=== PATIENT | male | born 1945 | race Caucasian/White ===

== ENCOUNTER 2016-06-02 14:06 | Emergency (ER) | payer BC ==
[~2016-06-02] VITALS: Ht 180.3 cm; Wt 107.0 kg
[2016-06-02 14:13] VITALS: BP 140/96; PULSE 138; RESP 16; TEMP 97.7; O2SAT 98
[2016-06-02] MEDS ORDERED: TAMS5CAP PO (14:51)
[2016-06-02] MEDS ORDERED: CIAL10TA PO (14:51)
[2016-06-02 15:14] LABS: BLOOD, URINE NEG (NEG); GLUCOSE,URINE NEG (NEG); KETONE, URINE NEG (NEG); NITRITE,URINE NEG (NEG); PH, URINE 5.5 (5.0-8.5)
[2016-06-02 15:20] LABS: COMMENT (UR) CULT NOT INDICATED; COMMENT2 (UR) MUCOUS PRESENT; CULTURE IF INDICATED CULT NOT INDICATED; METHOD OF COLLECTION CLEAN CATCH; URINE COLOR YELLOW (YELLW/STRAW)
--- NOTE | 2016-06-02 15:38 | PD ---
HPI Chief Complaint: Complaint Time Seen by Provider: 14:57 Travel History International Travel<30 days: No Contact w/Intl Traveler<30days: No Traveled to known affect area: No History of Present Illness HPI This 70-year-old male is complaining of inability to urinate. He has a history of enlarged prostate and takes Flomax on a regular basis. 2 days ago he took some Benadryl and since then he's been having trouble urinating. Today he is unable to void. PFSH Past Medical History Medical other: Yes (prostate) Tetanus Vaccination: < 5 Years Influenza Vaccination: Yes Past Surgical History Abdominal Surgery: Yes (hernia) Other Surgery: Yes (achillies) Social History Alcohol Use: Yes Tobacco Use: No Substance Use: No Allergies-Medications Reported Meds & Prescriptions Reported Meds & Active Scripts Active Reported Cialis (Tadalafil) 10 Mg Tab 10 Mg PO DAILY PRN Do not exceed 1 dose/day. Flomax (Tamsulosin HCl) 0.4 Mg Cap 0.8 Mg PO HS Review of Systems General / Constitutional: No: Fever, Chills Eyes: No: Diploplia, Blurred Vision HENT: No: Headaches Cardiovascular: No: Chest Pain or Discomfort, Palpitations Respiratory: No: Shortness of Breath Gastrointestinal: No: Vomiting, Diarrhea Genitourinary: Positive: Decreased Urinary Output Musculoskeletal: No: Myalgias Skin: No Rash Physical Exam Narrative GENERAL: Well-developed male SKIN: Warm and dry. HEAD: Atraumatic. Normocephalic. EYES: Pupils equal and round. No scleral icterus. No injection or drainage. ENT: No nasal bleeding or discharge. Mucous membranes pink and moist. NECK: Trachea midline. No JVD. GASTROINTESTINAL: Abdomen soft, non-tender, nondistended. Hepatic and splenic margins not palpable. There is suprapubic tenderness MUSCULOSKELETAL: No obvious deformities. No clubbing. No cyanosis. No edema. NEUROLOGICAL: Awake and alert. No obvious cranial nerve deficits. Motor grossly within normal limits. Normal speech. PSYCHIATRIC: Appropriate mood and affect; insight and judgment normal. Data Data Last Documented VS Vital Signs Date Time Temp Pulse Resp B/P Pulse Ox O2 Delivery O2 Flow Rate FiO2 06/02/16 14:13 97.7 138 16 140/96 98 Orders Urinalysis - C+S If Indicated (06/02/16 14:57) Urinary Catheter Insert/Apply (06/02/16 14:57) Electrocardiogram (06/02/16 13:23) Labs Laboratory Tests Test 06/02/16 15:00 Urine Collection Type CLEAN CATCH Urine Color YELLOW Urine Turbidity SLIGHT Urine pH 5.5 Urine Specific [place] 1.018 Urine Protein NEG mg/dL Urine Glucose (UA) NEG mg/dL Urine Ketones NEG mg/dL Urine Occult Blood NEG Urine Nitrite NEG Urine Bilirubin NEG Urine Leukocyte Esterase NEG Urine Squamous Epithelial 6-8 /hpf Cells Urine Amorphous Sediment FEW Microscopic Urinalysis Comment CULT NOT INDICATED Urine Collection Time 1500 MDM Medical Decision Making Medical Screen Exam Complete: Yes Emergency Medical Condition: Yes Medical Record Reviewed: Yes Differential Diagnosis Differential includes urinary retention, UTI Narrative Course Cruz catheter was inserted and 1200 cc of urine obtained. There is no evidence of urinary tract infection. Patient will be released with leg bag in place. He is from out of town to be here for another 8 days. I suspect his retention was triggered by his use of Benadryl 2 days ago. I have recommended he stop Benadryl. He can come back in 2 days for a trial of catheter removal. Diagnosis Primary Impression: Urinary retention Additional Instructions: Return here in 2 days for a trial of catheter removal Disposition: DISCHARGE HOME Condition: Stable Timo Calixto MD Jun 02, 2016 15:38
[2016-06-02 15:56] VITALS: BP 118/72
--- NOTE | 2016-06-04 11:21 | EKG ---
Date Performed: 06/02/2016 Time Performed: 13:23:24 PTAGE: 70 years EKG: Sinus tachycardia Anterior T wave changes are nonspecific Borderline ECG NO PREVIOUS TRACING DOCTOR: Cindy Juarez Interpretating Date/Time 06/04/2016 11:19:32
== END 2016-06-02 15:57 | disposition home or self-care (01) ==
LOC: PHEFT 14:06
DX: R33.9 Retention of urine, unspecified (principal); N40.0 Benign prostatic hyperplasia without lower urinary tract symptoms
CPT/HCPCS: 51702; 81001; 93005

== ENCOUNTER 2016-06-05 09:11 | Emergency (ER) | payer BC ==
[~2016-06-05] VITALS: Ht 180.3 cm; Wt 94.0 kg
[~2016-06-05 09:11] MED LIST: CIAL10TA PO; TAMS5CAP PO
[2016-06-05 09:15] VITALS: BP 121/77; PULSE 81; RESP 16; TEMP 97.8; O2SAT 98
--- NOTE | 2016-06-05 10:04 | PD ---
HPI Chief Complaint: Complaint Time Seen by Provider: 09:22 Travel History International Travel<30 days: No Contact w/Intl Traveler<30days: No Traveled to known affect area: No History of Present Illness HPI 70-year-old male presents requesting to have his catheter removed. He states he was here 2 days ago when after taking Benadryl he started having issues urinating. He denies any issues with his catheter or other new complaints. He states he is here on vacation and won't be home for over a week. PFS Past Medical History Narrative Medical bph Diminished Hearing: No Influenza Vaccination: No Past Surgical History Surgical History: No Previous Surgery Abdominal Surgery: Yes (hernia) Other Surgery: Yes (achillies) Social History Alcohol Use: Yes Tobacco Use: No Substance Use: No Allergies-Medications (Allergen,Severity, Reaction): Coded Allergies: Betadine (Verified Allergy, Unknown, 06/05/16) Reported Meds & Prescriptions Reported Meds & Active Scripts Active Reported Cialis (Tadalafil) 10 Mg Tab 10 Mg PO DAILY PRN Do not exceed 1 dose/day. Flomax (Tamsulosin HCl) 0.4 Mg Cap 0.8 Mg PO HS Review of Systems Except as stated in HPI: all other systems reviewed are Neg Physical Exam Narrative GENERAL: Well-nourished, well-developed patient. SKIN: Warm and dry. HEAD: Normocephalic and atraumatic. EYES: No injection or drainage. ENT: No nasal drainage noted. NECK: Supple, trachea midline. CARDIOVASCULAR: Regular rate and rhythm RESPIRATORY: No increased effort. No accessory muscle use. GASTROINTESTINAL: Abdomen soft, non-tender, nondistended. NEUROLOGICAL: Awake and alert. Moves all extremities. Normal speech. Data Data Last Documented VS Vital Signs Date Time Temp Pulse Resp B/P Pulse Ox O2 Delivery O2 Flow Rate FiO2 06/05/16 09:15 97.8 81 16 121/77 98 Orders Urinary Catheter - Remove (06/05/16 09:50) [facility] Medical Decision Making Medical Screen Exam Complete: Yes Emergency Medical Condition: Yes Medical Record Reviewed: Yes (past history confirm, recent ER visit noted) Differential Diagnosis BPH, medication effect, retention Narrative Course Offered patient options of removing catheter and monitoring here to make sure he could urinate again versus removing and returning if cannot urinate for us to put the catheter back in after he states he cannot follow-up outpatient and have it removed by urology as this is what I recommend. he elects to have it removed able to urinate here a small clear amount after catheter removed, Patient denies any new complaints, all questions answered. Patient knows that follow up is incumbent on them and to return to the emergency room immediately if new or worsening symptoms develop. Patient given strict return precautions, vitals reviewed and are normal, agrees to further workup as an outpatient. Diagnosis Primary Impression: Encounter for Curz catheter removal Patient Instructions: General Instructions Additional Instructions: set up a urologist, return as needed Med/Other Pt SpecificInfo: No Change to Meds Disposition: 01 DISCHARGE HOME Condition: Stable Ebonie Lopez MD Jun 05, 2016 10:04
== END 2016-06-05 11:10 | disposition home or self-care (01) ==
LOC: PHED 09:11
DX: Z46.6 Encounter for fitting and adjustment of urinary device (principal); N40.0 Benign prostatic hyperplasia without lower urinary tract symptoms
CPT/HCPCS: 99283

== ENCOUNTER 2016-06-05 15:16 | Emergency (ER) | payer BC ==
[~2016-06-05] VITALS: Ht 180.3 cm; Wt 94.0 kg
[2016-06-05 15:25] VITALS: BP 136/66; PULSE 96; RESP 18; TEMP 98; O2SAT 99
--- NOTE | 2016-06-05 15:37 | PD ---
HPI Chief Complaint: Complaint Time Seen by Provider: 15:26 Travel History International Travel<30 days: No Contact w/Intl Traveler<30days: No History of Present Illness HPI 70-year-old male presents having difficulty urinating now after having his catheter removed here in the emergency department. He states he can only get out small amounts. He denies other complaints. Quality is pressure. Severity is severe per patient. PFSH Past Medical History Diminished Hearing: No Past Surgical History Abdominal Surgery: Yes (hernia) Other Surgery: Yes (achillies) Social History Alcohol Use: Yes Tobacco Use: No Substance Use: No Allergies-Medications (Allergen,Severity, Reaction): Coded Allergies: Betadine (Verified Allergy, Unknown, 06/05/16) Reported Meds & Prescriptions Reported Meds & Active Scripts Active Reported Cialis (Tadalafil) 10 Mg Tab 10 Mg PO DAILY PRN Do not exceed 1 dose/day. Flomax (Tamsulosin HCl) 0.4 Mg Cap 0.8 Mg PO HS Review of Systems Except as stated in HPI: all other systems reviewed are Neg Physical Exam Narrative GENERAL: Well-nourished, well-developed patient. uncomfortable SKIN: Warm and dry. HEAD: Normocephalic and atraumatic. EYES: No injection or drainage. ENT: No nasal drainage noted. NECK: Supple, trachea midline. CARDIOVASCULAR: Regular rate and rhythm RESPIRATORY: No accessory muscle use. GASTROINTESTINAL: Abdomen soft, distended bladder, ttp in suprapubic area NEUROLOGICAL: Awake and alert. Motor and sensory grossly within normal limits. Normal speech. Data Data Last Documented VS Vital Signs Date Time Temp Pulse Resp B/P Pulse Ox O2 Delivery O2 Flow Rate FiO2 06/05/16 15:25 98.0 96 18 136/66 99 Orders Urinary Catheter Insert/Apply (06/05/16 15:26) Urinalysis - C+S If Indicated (06/05/16 15:28) Labs Laboratory Tests Test 06/05/16 15:30 Urine Collection Type CATH Urine Color YELLOW Urine Turbidity CLEAR Urine pH 6.0 Urine Specific [place] 1.009 Urine Protein NEG mg/dL Urine Glucose (UA) NEG mg/dL Urine Ketones NEG mg/dL Urine Occult Blood MOD Urine Nitrite NEG Urine Bilirubin NEG Urine Leukocyte Esterase TRACE Urine RBC 0-3 /hpf Urine WBC 0-2 /hpf Urine Squamous Epithelial 0-5 /hpf Cells Microscopic Urinalysis Comment CULT NOT INDICATED Urine Collection Time 15:30 [facility] Medical Decision Making Medical Screen Exam Complete: Yes Emergency Medical Condition: Yes Medical Record Reviewed: Yes ([facility] confirmed) Interpretation(s) ua without significant signs of infection Differential Diagnosis Recurrent retention, UTI, musculoskeletal Narrative Course Will replace catheter and send urinalysis 1000 ml uop, feeling better, will discuss with urology Patient denies any new complaints and states that they are feeling better. Patient happy with care, all questions answered. Patient knows that follow up is incumbent on them and to return to the emergency room immediately if new or worsening symptoms develop. Patient given strict return precautions, vitals reviewed and are normal, agrees to further workup as an outpatient. Physician Communication Physician Communication dr briceño states can follow up when gets back home, no antibiotics Diagnosis Primary Impression: Urinary retention Patient Instructions: Cruz Catheter Placement and Care (DC), General Instructions Additional Instructions: return as needed, set up a urologist when you are back home Med/Other Pt SpecificInfo: No Change to Meds Disposition: 01 DISCHARGE HOME Condition: Stable Ebonie Lopez MD Jun 05, 2016 15:37
[2016-06-05 15:38] LABS: GLUCOSE,URINE NEG (NEG); KETONE, URINE NEG (NEG); NITRITE,URINE NEG (NEG)
[2016-06-05 15:40] LABS: BLOOD, URINE MOD (NEG)
[2016-06-05 15:46] LABS: METHOD OF COLLECTION CATH; URINE COLOR YELLOW (YELLW/STRAW)
[2016-06-05 15:47] LABS: COMMENT (UR) CULT NOT INDICATED; CULTURE IF INDICATED CULT NOT INDICATED; RBC, URINE 0-3 /hpf (0-3); SQUAMOUS EPITHELIAL CELL URINE 0-5 /hpf (0-5); WBC, URINE 0-2 /hpf (0-5)
== END 2016-06-05 16:42 | disposition home or self-care (01) ==
LOC: PHED 15:16
DX: R33.9 Retention of urine, unspecified (principal)
CPT/HCPCS: 51702; 81001; 99283